=== PATIENT | female | born 1960 | race Caucasian/White ===

== ENCOUNTER 2020-12-06 03:49 | Emergency (ER) | payer MEDICAID, OTHER ==
[~2020-12-06] VITALS: Ht 167.6 cm; Wt 85.7 kg
[~2020-12-06 03:49] MED LIST: ALBU18HF2 INH; HYDR-3972 PO; IBUP-1985 PO; METF-438 PO; PANT-47 PO; SIMV-42 PO; [UNRECOGNIZED DRUG - CODE] VG
[2020-12-06] MEDS ORDERED: LORazepam 1 MG tablet PO ONE (05:25)
[2020-12-06] MEDS ORDERED: ondansetron 4mg rapidly disintigrating tab PO ONE (05:25)
[2020-12-06] MEDS ORDERED: CHLO25CA10 PO (05:28)
[2020-12-06 08:57] LABS: BASOPHILS # (AUTO) 0.1 X10'3 (0-0.2); EOSINOPHILS # (AUTO) 0.2 X10'3 (0-0.9); LYMPHOCYTES # (AUTO) 1.9 X10'3 (1.1-4.8); NEUTROPHILS # (AUTO) 2.3 X10'3 (1.8-7.7); RED CELL DISTRIBUTION WIDTH 13.7 % (11.5-14.5)
[2020-12-06 08:58] LABS: BASOPHILS % (AUTO) 2.9 % (0-1); EOSINOPHILS % (AUTO) 3.4 % (0-6); HEMATOCRIT 39.9 % (35.0-45.0); HEMOGLOBIN 13.5 g/dl (12.0-16.0); LYMPHOCYTES % (AUTO) 38.2 % (21-51); MEAN CORPUSCULAR HEMOGLOBIN 37.7 PG (27.0-31.0); MEAN CORPUSCULAR HGB CONC 33.9 g/dL (33.0-36.5); MEAN CORPUSCULAR VOLUME 111.1 FL (78-98); MEAN PLATELET VOLUME 7.1 FL (7.4-10.4); MONOCYTES # (AUTO) 0.5 X10'3 (0-0.9); MONOCYTES % (AUTO) 10.2 % (2-12); NEUTROPHILS % (AUTO) 45.3 % (42-75); PLATELET COUNT 97 X10'3 (140-440); RED BLOOD COUNT 3.59 X10'6 (4.20-5.60)
[2020-12-06 09:06] VITALS: BP 161/115
--- NOTE | 2020-12-06 09:14 | NUR ---
bp 161/115, informed dr. mauricio. no new orders, ok for discharge.
[2020-12-06 09:23] LABS: ALANINE AMINOTRANSFERASE 32 U/L (12-78); ALBUMIN 2.4 G/DL (3.4-5.0); ALBUMIN/GLOBULIN RATIO 0.7 (1.1-1.5); ALKALINE PHOSPHATASE 129 IU/L (46-116); ANION GAP 11 (8-16); ASPARTATE AMINO TRANSFERASE 105 U/L (10-37); BILIRUBIN,TOTAL 0.6 MG/DL (0.1-1.0); BLOOD UREA NITROGEN 6 MG/DL (7-18); BUN/CREATININE RATIO 10.2 (6.6-38.0); CALCIUM 7.1 MG/DL (8.5-10.1); CHLORIDE 109 MMOL/L (99-107); CREATININE 0.59 MG/DL (0.40-0.90); GLUCOSE 92 MG/DL (70-104); POTASSIUM 3.1 MMOL/L (3.5-5.1); SODIUM 149 MMOL/L (135-145); TOTAL CARBON DIOXIDE 28.8 MMOL/L (24-32); TOTAL PROTEIN 5.9 G/DL (6.4-8.2); eGFR > 90 ML/MIN
== END 2020-12-06 09:16 | disposition home or self-care (01) ==
LOC: ER 03:50
DX: F10.239 Alcohol dependence with withdrawal, unspecified (principal); E78.00 Pure hypercholesterolemia, unspecified; E11.9 Type 2 diabetes mellitus without complications; Z91.013 Allergy to seafood; Z88.8 Allergy status to other drugs, medicaments and biological substances; Z79.2 Long term (current) use of antibiotics; Z79.899 Other long term (current) drug therapy; Z87.440 Personal history of urinary (tract) infections; Z87.442 Personal history of urinary calculi; Y90.8 Blood alcohol level of 240 mg/100 ml or more
CPT/HCPCS: 80053; 82948; 85025; 99283

== ENCOUNTER 2021-11-27 08:26 | Inpatient (IN) | payer BC, MEDICAID, OTHER ==
[2021-11-27] VITALS (8 sets, daily range): BP systolic 84–97; BP diastolic 50–69
[~2021-11-27] VITALS: Ht 170.2 cm; Wt 99.5 kg
[~2021-11-27 08:26] MED LIST changes: +CHLO25CA10 PO
[2021-11-27 09:22] LABS: HEMATOCRIT 30.2 % (35.0-45.0); MEAN CORPUSCULAR HEMOGLOBIN 39.3 PG (27.0-31.0)
[2021-11-27 09:24] LABS: BASOPHILS # (AUTO) 0.1 X10'3 (0-0.2); BASOPHILS % (AUTO) 1.4 % (0-1); EOSINOPHILS # (AUTO) 0.1 X10'3 (0-0.9); EOSINOPHILS % (AUTO) 0.7 % (0-6); HEMOGLOBIN 10.3 g/dl (12.0-16.0); LYMPHOCYTES # (AUTO) 1.3 X10'3 (1.1-4.8); LYMPHOCYTES % (AUTO) 12.2 % (21-51); MEAN CORPUSCULAR HGB CONC 34.2 g/dL (33.0-36.5); MEAN CORPUSCULAR VOLUME 114.9 FL (78-98); MEAN PLATELET VOLUME 7.6 FL (7.4-10.4); MONOCYTES # (AUTO) 1.4 X10'3 (0-0.9); MONOCYTES % (AUTO) 13.5 % (2-12); NEUTROPHILS # (AUTO) 7.5 X10'3 (1.8-7.7); NEUTROPHILS % (AUTO) 72.2 % (42-75); PLATELET COUNT 90 X10'3 (140-440); RED BLOOD COUNT 2.63 X10'6 (4.20-5.60); RED CELL DISTRIBUTION WIDTH 20.1 % (11.5-14.5); WHITE BLOOD COUNT 10.5 X10'3 (4.5-11.0)
[2021-11-27 09:26] LABS: ALANINE AMINOTRANSFERASE 30 U/L (12-78); ALBUMIN 1.6 G/DL (3.4-5.0); ALKALINE PHOSPHATASE 201 IU/L (46-116); ANION GAP 9 (8-16); ASPARTATE AMINO TRANSFERASE 123 U/L (10-37); BLOOD UREA NITROGEN 30 MG/DL (7-18); BUN/CREATININE RATIO 25.4 (6.6-38.0); CHLORIDE 103 MMOL/L (99-107); CREATININE 1.18 MG/DL (0.40-0.90); GLUCOSE 134 MG/DL (70-104); LIPASE 407 U/L (73-393); SODIUM 138 MMOL/L (135-145); TOTAL CARBON DIOXIDE 25.7 MMOL/L (24-32); eGFR 47 ML/MIN
[2021-11-27 09:27] LABS: ALBUMIN/GLOBULIN RATIO 0.3 (1.1-1.5); TOTAL PROTEIN 6.4 G/DL (6.4-8.2)
[2021-11-27 09:28] LABS: POTASSIUM 2.9 MMOL/L (3.5-5.1)
[2021-11-27 09:36] LABS: PLATELET ESTIMATE DECREASED
[2021-11-27 09:37] LABS: ANISOCYTOSIS 3+; APTT 32 SECONDS (22-32); POLYCHROMASIA 1+; TARGET CELLS 2+; TEAR DROP CELLS 1+
[2021-11-27] MEDS ORDERED: LORazepam 2 mg/ml vial IV ONE (10:20)
[2021-11-27] MEDS ORDERED: potassium Cl 20 mEq SR tablet PO ONE (10:20)
[2021-11-27] MEDS ORDERED: normal saline 1000ML IV soln IVB ONE (10:20)
[2021-11-27] MEDS ORDERED: ondansetron/PF 4mg/2ml inj IV ONE (10:20)
[2021-11-27] MEDS ORDERED: potassium CL 10mEq/100ml bag 100 ML IV ONE (10:35)
[2021-11-27] MEDS ORDERED: pantoprazole IV 80 MG in normal saline 100ml IV soln 100 ML IV ONE (10:50)
[2021-11-27] MEDS ORDERED: pantoprazole 40MG/NS 100ML BAG 100 ML IV ONE (10:50)
[2021-11-27 11:18] LABS: CLARITY,URINE CLOUDY (Clear)
[2021-11-27 11:25] LABS: COLOR,URINE AMBER (Yellow); UA COLLECTION TYPE NON-SPECIFIED
[2021-11-27 11:26] LABS: BACTERIA,URINE 1+ /HPF (Neg); HYALINE CASTS 0-3 /LPF (NEGATIVE); MUCUS STRANDS FEW /LPF (Neg); RBC,URINE 0-2 /HPF (0-2); SQUAMOUS EPITHELIAL CELL,UR MODERATE /LPF (FEW); TRANSITIONAL EPI CELLS,URINE FEW /HPF; WBC,URINE 0-4 /HPF (0-4)
[2021-11-27 11:57] LABS: MAGNESIUM 1.3 MG/DL (1.5-2.4)
[2021-11-27] MEDS: magnesium 2GM in 50ml NS 50 ML IV SCH ×2 (12:54→13:37)
[2021-11-27] MEDS ORDERED: octreotide 100mcg/1 ml ampule IV ONE (13:10)
[2021-11-27] MEDS ORDERED: POTASSIUM BICARB 20meq eff tab 20 MEQ TABLET.EFF PO PRN ×2 (13:30)
[2021-11-27] MEDS ORDERED: diphenhydrAMINE 25mg capsule PO PRN (13:30)
[2021-11-27] MEDS ORDERED: dextrose 50%-water 50ml dispensing syringe IV PRN ×3 (13:30)
[2021-11-27] MEDS ORDERED: haloperidol 5mg tablet PO PRN (13:30)
[2021-11-27] MEDS ORDERED: magnesium 2GM in 50ml NS 50 ML IV PRN (13:30)
[2021-11-27] MEDS ORDERED: glucagon, human recombinant 1mg kit SUBCUT PRN (13:30)
[2021-11-27] MEDS ORDERED: HYDROcodone/acetaminophen 5mg/325mg tablet PO PRN (13:30)
[2021-11-27] MEDS ORDERED: MESSAGE TO PHARMACY PO ONE (13:30)
[2021-11-27] MEDS ORDERED: morphine 2 MG/ML inj. syringe IV PRN (13:30)
[2021-11-27] MEDS ORDERED: DEXTROSE 15 GM of carb/4 tabs (each vial/BOTTLE has 4 tablets) PO PRN ×2 (13:30)
[2021-11-27] MEDS ORDERED: magnesium hydroxide 30ml (MOM) UD suspension PO PRN (13:30)
[2021-11-27] MEDS ORDERED: haloperidol lactate 5mg/ml inj IM PRN (13:30)
[2021-11-27] MEDS ORDERED: ondansetron/PF 4mg/2ml inj IV PRN (13:30)
[2021-11-27] MEDS ORDERED: magnesium Cl slow-release 64mg tablet PO PRN (13:30)
[2021-11-27] MEDS ORDERED: acetaminophen 325mg tablet PO PRN ×2 (13:30)
[2021-11-27] MEDS ORDERED: magnesium 4gm in 100ml NS 100 ML IV PRN (13:30)
[2021-11-27] MEDS ORDERED: insulin Lispro (HumaLOG) vial - multi-dose SQ SCH (13:30)
[2021-11-27] MEDS ORDERED: mag hydrox/Alum hydrox/simeth 30ml oral suspension PO PRN (13:30)
[2021-11-27] MEDS: octreotide inj. 500 MCG in normal saline 100ml IV soln 97.5 ML IV SCH ×2 (13:38→15:55)
[2021-11-27] MEDS ORDERED: IBUP-1986 PO (13:47)
[2021-11-27] MEDS: dextrose 5%-normal saline 1,000 ML IV SCH ×2 (13:53→17:54)
[2021-11-27 14:06] LABS: HEMOGLOBIN A1C 5.7 % (4.5-6.2)
[2021-11-27] MEDS ORDERED: LIDOcaine Viscous 15ml cup ONE (16:06)
[2021-11-27] MEDS ORDERED: fentaNYL/PF 50MCG/1 ML 2ML syringe ONE (16:06)
[2021-11-27] MEDS ORDERED: MIDAZolam 1 MG/ML 5ML VIAL ONE (16:06)
[2021-11-27] MEDS: pantoprazole 40MG/NS 100ML BAG 100 ML IV SCH ×3 (17:45→22:54)
[2021-11-27] MEDS: K and/or MAG REPLACEMENT MC SCH (19:13)
[2021-11-27] MEDS: docusate sod 100mg capsule PO SCH (19:24)
[2021-11-27] MEDS: thiamine 100mg/ml 2ml inj. IV SCH (19:25)
[2021-11-27] MEDS: LORazepam 2 mg/ml vial IV PRN ×2 (19:46→22:46)
--- NOTE | 2021-11-27 20:15 | NUR ---
Patient sleeping after PRN IVP Ativan. Call light in reach, bed low.
[2021-11-27] MEDS: insulin glargine (Lantus) pen - multi-dose SQ SCH (21:00)
--- NOTE | 2021-11-27 23:15 | NUR ---
Patient sleeping after PRN IVP Ativan. Call light in reach, bed low.
[2021-11-28 02:00] VITALS: BP 98/70
[2021-11-28] MEDS: pantoprazole 40MG/NS 100ML BAG 100 ML IV SCH ×4 (03:43→23:46)
[2021-11-28] MEDS: LORazepam 2 mg/ml vial IV PRN ×3 (03:46→21:45)
--- NOTE | 2021-11-28 04:15 | NUR ---
Patient sleeping after PRN IVP Ativan. Call light in reach, bed low.
--- NOTE | 2021-11-28 05:36 | NUR ---
Alert and oriented x4, tolerating room air, patient drinking clear liquid water, chicken broth and some jello with out issues. RN instructed need to avoid any red colored fluids. Patient with 2 IV access due to high amount of IV fluid and IV push meds. both secured with coban. Patient up twice to bedside commode, needing assist of 2 staff members due unsteady on her feet. Side rails padded and suction equipment set up in room incase need for withdrawal symptoms. Patient assessed for withdrawal and given PRN Ativan as need based on assessment. Patient reports abdominal pain that she has on admit, no worse, did not ask for any pain medications. No s/s pain noted. patient currently resting in bed.
[2021-11-28 06:11] LABS: H PYLORI ANTIBODY NEGATIVE (Neg)
[2021-11-28 06:47] LABS: BASOPHILS # (AUTO) 0.1 X10'3 (0-0.2); BASOPHILS % (AUTO) 1.2 % (0-1); EOSINOPHILS # (AUTO) 0.2 X10'3 (0-0.9); EOSINOPHILS % (AUTO) 2.6 % (0-6); HEMATOCRIT 27.2 % (35.0-45.0); HEMOGLOBIN 9.2 g/dl (12.0-16.0); LYMPHOCYTES # (AUTO) 1.2 X10'3 (1.1-4.8); LYMPHOCYTES % (AUTO) 16.2 % (21-51); MEAN CORPUSCULAR HEMOGLOBIN 40.3 PG (27.0-31.0); MEAN CORPUSCULAR HGB CONC 33.9 g/dL (33.0-36.5); MEAN PLATELET VOLUME 7.7 FL (7.4-10.4); MONOCYTES # (AUTO) 0.7 X10'3 (0-0.9); MONOCYTES % (AUTO) 9.4 % (2-12); NEUTROPHILS % (AUTO) 70.6 % (42-75); PLATELET COUNT 66 X10'3 (140-440); RED BLOOD COUNT 2.29 X10'6 (4.20-5.60); RED CELL DISTRIBUTION WIDTH 21.1 % (11.5-14.5); WHITE BLOOD COUNT 7.1 X10'3 (4.5-11.0)
--- NOTE | 2021-11-28 06:54 | NUR ---
Patient in room PCU 3024. I have received report from Jinny GR and had the opportunity to ask questions and assume patient care.
[2021-11-28 07:00] VITALS: BP 86/53
[2021-11-28 07:04] LABS: ALANINE AMINOTRANSFERASE 26 U/L (12-78); ALBUMIN 1.4 G/DL (3.4-5.0); ALKALINE PHOSPHATASE 170 IU/L (46-116); ANION GAP 5 (8-16); ASPARTATE AMINO TRANSFERASE 98 U/L (10-37); BILIRUBIN,TOTAL 4.4 MG/DL (0.1-1.0); BLOOD UREA NITROGEN 30 MG/DL (7-18); CALCIUM 6.7 MG/DL (8.5-10.1); CHLORIDE 109 MMOL/L (99-107); GLUCOSE 231 MG/DL (70-104); HDL CHOLESTEROL 11 MG/DL (35-60); LDL CHOLESTEROL 51 MG/DL (50-100); MAGNESIUM 2.1 MG/DL (1.5-2.4); POTASSIUM 3.4 MMOL/L (3.5-5.1); SODIUM 137 MMOL/L (135-145); TOTAL CARBON DIOXIDE 22.6 MMOL/L (24-32); eGFR 46 ML/MIN
[2021-11-28 07:07] LABS: ALBUMIN/GLOBULIN RATIO 0.3 (1.1-1.5); CHOL/HDL RATIO 7.8 (0.00-4.99); CHOLESTEROL 86 MG/DL (0-200); PHOSPHORUS 1.6 MG/DL (2.3-4.5); TOTAL PROTEIN 5.6 G/DL (6.4-8.2); TRIGLYCERIDES 120 MG/DL (20-135)
[2021-11-28 07:34] LABS: ANISOCYTOSIS 3+; PLATELET ESTIMATE DECREASED; POIKILOCYTOSIS FEW; POLYCHROMASIA 1+
[2021-11-28] MEDS: dextrose 5%-normal saline 1,000 ML IV SCH ×3 (09:30→23:25)
[2021-11-28] MEDS: thiamine 100mg/ml 2ml inj. IV SCH ×3 (10:14→21:06)
[2021-11-28] MEDS: folic acid 1mg/0.2ml inj IV SCH (10:15)
[2021-11-28] MEDS: docusate sod 100mg capsule PO SCH ×2 (10:15→21:06)
[2021-11-28] MEDS: K and/or MAG REPLACEMENT MC SCH ×2 (10:29→20:00)
[2021-11-28 10:34] VITALS: BP 91/51
--- NOTE | 2021-11-28 11:26 | NUR ---
Patient daughter Stephie called and wanted an update on her mom. Update given.
[2021-11-28] MEDS: octreotide inj. 500 MCG in normal saline 100ml IV soln 97.5 ML IV SCH (12:49)
[2021-11-28 15:00] VITALS: BP 91/51
[2021-11-28] MEDS: HYDROcodone/acetaminophen 10/325mg tab PO PRN (17:44)
[2021-11-28 18:00] VITALS: BP 85/53
--- NOTE | 2021-11-28 18:30 | NUR ---
Patient in room PCU 3024. I have received report from Genesis GR and had the opportunity to ask questions and assume patient care.
--- NOTE | 2021-11-28 18:40 | NUR ---
Problems reprioritized. Patient report given, questions answered & plan of care reviewed with Chrystal GR.
[2021-11-28] MEDS: insulin glargine (Lantus) pen - multi-dose SQ SCH (21:45)
[2021-11-28 22:00] VITALS: BP 92/54
[2021-11-29] MEDS: pantoprazole 40MG/NS 100ML BAG 100 ML IV SCH ×4 (01:00→20:59)
[2021-11-29 02:00] VITALS: BP 110/80
[2021-11-29] MEDS: LORazepam 2 mg/ml vial IV PRN ×3 (04:31→22:21)
[2021-11-29] MEDS: octreotide inj. 500 MCG in normal saline 100ml IV soln 97.5 ML IV SCH (05:44)
--- NOTE | 2021-11-29 06:29 | NUR ---
Problems reprioritized. Patient report given, questions answered & plan of care reviewed with Genesis GR.
[2021-11-29 07:00] VITALS: BP 106/37
[2021-11-29] MEDS: K and/or MAG REPLACEMENT MC SCH ×2 (08:00→20:00)
[2021-11-29] MEDS: docusate sod 100mg capsule PO SCH ×2 (08:00→20:00)
[2021-11-29 08:13] LABS: BASOPHILS # (AUTO) 0.1 X10'3 (0-0.2); BASOPHILS % (AUTO) 1.3 % (0-1); EOSINOPHILS # (AUTO) 0.2 X10'3 (0-0.9); EOSINOPHILS % (AUTO) 2.2 % (0-6); HEMATOCRIT 34.3 % (35.0-45.0); HEMOGLOBIN 11.5 g/dl (12.0-16.0); LYMPHOCYTES # (AUTO) 1.9 X10'3 (1.1-4.8); LYMPHOCYTES % (AUTO) 17.5 % (21-51); MEAN CORPUSCULAR HEMOGLOBIN 40.1 PG (27.0-31.0); MEAN CORPUSCULAR HGB CONC 33.5 g/dL (33.0-36.5); MEAN CORPUSCULAR VOLUME 119.9 FL (78-98); MEAN PLATELET VOLUME 7.8 FL (7.4-10.4); MONOCYTES # (AUTO) 0.9 X10'3 (0-0.9); MONOCYTES % (AUTO) 8.1 % (2-12); NEUTROPHILS # (AUTO) 7.7 X10'3 (1.8-7.7); NEUTROPHILS % (AUTO) 70.9 % (42-75); PLATELET COUNT 87 X10'3 (140-440); RED BLOOD COUNT 2.86 X10'6 (4.20-5.60); RED CELL DISTRIBUTION WIDTH 22.6 % (11.5-14.5); WHITE BLOOD COUNT 10.8 X10'3 (4.5-11.0)
[2021-11-29 08:44] LABS: ALANINE AMINOTRANSFERASE 35 U/L (12-78); ALBUMIN 1.8 G/DL (3.4-5.0); ALKALINE PHOSPHATASE 195 IU/L (46-116); ANION GAP 9 (8-16); ASPARTATE AMINO TRANSFERASE 123 U/L (10-37); BILIRUBIN,TOTAL 5.5 MG/DL (0.1-1.0); BLOOD UREA NITROGEN 23 MG/DL (7-18); BUN/CREATININE RATIO 22.8 (6.6-38.0); CALCIUM 6.8 MG/DL (8.5-10.1); CHLORIDE 112 MMOL/L (99-107); CREATININE 1.01 MG/DL (0.40-0.90); GLUCOSE 160 MG/DL (70-104); MAGNESIUM 1.8 MG/DL (1.5-2.4); SODIUM 144 MMOL/L (135-145); TOTAL CARBON DIOXIDE 22.6 MMOL/L (24-32); eGFR 56 ML/MIN
[2021-11-29 08:47] LABS: ALBUMIN/GLOBULIN RATIO 0.4 (1.1-1.5); POTASSIUM 3.2 MMOL/L (3.5-5.1); TOTAL PROTEIN 6.7 G/DL (6.4-8.2)
[2021-11-29 08:49] LABS: PHOSPHORUS 0.9 MG/DL (2.3-4.5)
--- NOTE | 2021-11-29 09:22 | NUR ---
MD chapin for critical lab
[2021-11-29] MEDS ORDERED: potassium phosphate inj 30 MMOL in normal saline 500ml IV soln 500 ML IV ONE (10:25)
[2021-11-29 10:33] LABS: ANISOCYTOSIS 3+; PLATELET ESTIMATE DECREASED; STOMATOCYTES FEW; TARGET CELLS FEW; TEAR DROP CELLS 1+
[2021-11-29 10:34] LABS: POLYCHROMASIA FEW
[2021-11-29 11:00] VITALS: BP 111/67
--- NOTE | 2021-11-29 11:24 | NUR ---
Can give info to patients children: Daughters Marta Alfaro - [phone] Stephie [phone] and maurice Arreola [phone] Addendum: 11/29/21 at 1129 by eGnesis Wilson RN Also maurice Alfaro - [phone]
[2021-11-29] MEDS: dextrose 5%-1/2 normal saline 1,000 ML IV SCH (12:10)
[2021-11-29] MEDS: thiamine 100mg/ml 2ml inj. IV SCH ×3 (12:41→21:02)
--- NOTE | 2021-11-29 13:05 | NUR ---
Tried several times to call patients daughter back (she called and wanted an update) Phone number does not ring.
[2021-11-29] MEDS: folic acid 1mg/0.2ml inj IV SCH (13:26)
[2021-11-29] MEDS ORDERED: LORazepam 1 MG tablet PO PRN (13:30)
[2021-11-29 15:00] VITALS: BP 105/54
--- NOTE | 2021-11-29 16:00 | NUR ---
Problems reprioritized. Patient report given, questions answered & plan of care reviewed with Jinny GR.
[2021-11-29 18:00] VITALS: BP 115/55
[2021-11-29] MEDS: potassium CL 10mEq/100ml bag 100 ML IV PRN ×4 (18:21→22:48)
[2021-11-29 22:00] VITALS: BP 98/59
[2021-11-29] MEDS: insulin glargine (Lantus) pen - multi-dose SQ SCH (22:50)
[2021-11-30] MEDS: LORazepam 2 mg/ml vial IV PRN ×8 (00:56→23:50)
[2021-11-30] MEDS: dextrose 5%-1/2 normal saline 1,000 ML IV SCH ×2 (01:10→14:25)
[2021-11-30 02:00] VITALS: BP 97/58
--- NOTE | 2021-11-30 05:53 | NUR ---
patient sleepy, waking every hour or so with noted tremor, restless, anxious, reports some nausea earlier in the night and headache. Patient received multiple doses of PRN ativan. When patient agitated and needing ativan HR noted on tele in 120's and tachypneic in mid to high 20's. After ativan patient would settle for 30-60 min and HR would return to 100's and respirations in low 20's. Patient weak and has difficulty moving in bed, sleeps better on her side. During the night patient reported feeling SOB, SPO2 around 90, RN placed patient on O2 via NC between 3-4LPM, patient now has O2 sat around 94%. Patient incontinent and due to restlessness unable to having Starteed work appropriately, patient placed in a brief. Seizure pads on bed. Patient has one IV, two RNs tried several times without success to gain additional IV access. Right AC has very good blood return and functioning well during the night. IV fluids infusing. Patient currently resting comfortable on her right side, wearing O2.
[2021-11-30 07:00] VITALS: BP 97/70
[2021-11-30 07:55] LABS: BASOPHILS # (AUTO) 0.2 X10'3 (0-0.2); BASOPHILS % (AUTO) 1.4 % (0-1); EOSINOPHILS # (AUTO) 0.1 X10'3 (0-0.9); EOSINOPHILS % (AUTO) 0.8 % (0-6); HEMATOCRIT 34.9 % (35.0-45.0); LYMPHOCYTES # (AUTO) 2.3 X10'3 (1.1-4.8); LYMPHOCYTES % (AUTO) 17.8 % (21-51); MEAN CORPUSCULAR HEMOGLOBIN 39.8 PG (27.0-31.0); MEAN CORPUSCULAR HGB CONC 31.5 g/dL (33.0-36.5); MEAN CORPUSCULAR VOLUME 126.5 FL (78-98); MEAN PLATELET VOLUME 7.7 FL (7.4-10.4); MONOCYTES # (AUTO) 1.2 X10'3 (0-0.9); MONOCYTES % (AUTO) 9.7 % (2-12); NEUTROPHILS # (AUTO) 8.9 X10'3 (1.8-7.7); NEUTROPHILS % (AUTO) 70.3 % (42-75); PLATELET COUNT 90 X10'3 (140-440); RED BLOOD COUNT 2.76 X10'6 (4.20-5.60); RED CELL DISTRIBUTION WIDTH 23.8 % (11.5-14.5); WHITE BLOOD COUNT 12.7 X10'3 (4.5-11.0)
[2021-11-30] MEDS: docusate sod 100mg capsule PO SCH ×2 (08:00→20:39)
[2021-11-30] MEDS: K and/or MAG REPLACEMENT MC SCH ×2 (08:00→20:00)
[2021-11-30 08:20] LABS: ALANINE AMINOTRANSFERASE 36 U/L (12-78); ALBUMIN 1.4 G/DL (3.4-5.0); ALKALINE PHOSPHATASE 170 IU/L (46-116); ANION GAP 10 (8-16); ASPARTATE AMINO TRANSFERASE 119 U/L (10-37); BILIRUBIN,TOTAL 6.8 MG/DL (0.1-1.0); BLOOD UREA NITROGEN 15 MG/DL (7-18); BUN/CREATININE RATIO 15.8 (6.6-38.0); CALCIUM 6.5 MG/DL (8.5-10.1); CHLORIDE 117 MMOL/L (99-107); CREATININE 0.95 MG/DL (0.40-0.90); GLUCOSE 123 MG/DL (70-104); MAGNESIUM 1.5 MG/DL (1.5-2.4); SODIUM 144 MMOL/L (135-145); TOTAL CARBON DIOXIDE 16.8 MMOL/L (24-32); eGFR 60 ML/MIN
[2021-11-30 08:22] LABS: ALBUMIN/GLOBULIN RATIO 0.3 (1.1-1.5); PHOSPHORUS 1.3 MG/DL (2.3-4.5); POTASSIUM 4.3 MMOL/L (3.5-5.1)
[2021-11-30] MEDS: thiamine 100mg/ml 2ml inj. IV SCH ×3 (08:54→20:39)
[2021-11-30] MEDS: folic acid 1mg/0.2ml inj IV SCH (08:54)
[2021-11-30] MEDS: pantoprazole 40MG/NS 100ML BAG 100 ML IV SCH ×2 (10:02→20:40)
[2021-11-30 11:00] VITALS: BP 126/67
--- NOTE | 2021-11-30 14:53 | NUR ---
Message: [id number] Sophie Arreola: Patient is trying to get up and is very restless. Can I get a higher dose of Ativan or something else to help calm her down so she can rest? [facility] ext [phone] Custom Responses: promotional table spacer Transaction number: [id number]
[2021-11-30 15:00] VITALS: BP 98/64
--- NOTE | 2021-11-30 15:32 | NUR ---
PRESSURE ULCER EDUCATION: DEFINITION: A pressure ulcer is an area of skin that breaks down when you stay in one position too long. The constant pressure against the skin reduces the blood flow to that area and the affected tissue dies. CAUSES: "Being bedridden or in a wheelchair "Fragile skin "Having a chronic condition, such as diabetes or vascular disease "Inability to move certain parts of your body without assistance "Older age "Incontinence of urine or stool SYMPTOMS: "A reddened area that DOES NOT turn white when pressed on - this can be the beginning of a pressure ulcer "A blister, deep sore or a crater - these can be advanced pressure ulcers FIRST AID: "Relieve the pressure on this area "Keep the area clean and dry "Call your primary doctor if you see any of the above symptoms "DO NOT massage the area "DO NOT use a donut shaped or ring shaped pillow- these actually interfere with the blood flow and cause complications PREVENTION: "Check for pressure ulcers everyday "Change position at least every two hours to relieve pressure "Use items that help relieve pressure- pillows, sheepskin, foam padding, and powders. "Keep skin clean and dry "Eat healthy well balanced meals "Exercise daily IF YOU SEE ANY OF THESE SYMPTOMS WHILE IN THE HOSPITAL - TELL YOUR NURSE IMMEDIATELY. IF YOU SEE ANY OF THESE SYMPTOMS WHILE AT HOME OR HAVE ANY QUESTIONS OR CONCERNS ABOUT PRESSURE ULCERS - CALL YOUR PRIMARY DOCTOR IMMEDIATELY. Addendum: 11/30/21 at 1532 by Kadie Esposito LVN Amended: Links added.
--- NOTE | 2021-11-30 15:37 | NUR ---
Message: [id number] Sophie Arreola: Patient needs higher dose of Ativan please. [facility] ext [phone]
--- NOTE | 2021-11-30 16:06 | NUR ---
Message: [id number]: Maxwell. Sophie: Patient has temp of 101.4 Axillary. Still needing increase in Ativan. [facility] Transaction number: [id number]
[2021-11-30] MEDS ORDERED: acetaminophen 120MG suppository, rectal RC PRN (17:05)
[2021-11-30] MEDS ORDERED: folic acid 1mg/0.2ml inj IV SCH (17:05)
[2021-11-30] MEDS ORDERED: dextrose 50%-water 50ml dispensing syringe IV PRN (17:05)
[2021-11-30] MEDS ORDERED: haloperidol lactate 5mg/ml inj IM PRN (17:05)
[2021-11-30 18:00] VITALS: BP 109/82
[2021-11-30] MEDS ORDERED: acetaminophen 650mg rectal suppository RC PRN (18:30)
--- NOTE | 2021-11-30 19:04 | NUR ---
Patient in room PCU 3016. I have received report from MARGARETTE GR and had the opportunity to ask questions and assume patient care.
[2021-11-30] MEDS: nystatin 15 GM powder TP SCH (20:38)
[2021-11-30] MEDS: insulin glargine (Lantus) pen - multi-dose SQ SCH (21:00)
[2021-11-30 22:00] VITALS: BP 134/91
[2021-11-30] MEDS ORDERED: potassium phosphate inj 30 MMOL in normal saline 500ml IV soln 500 ML IV ONE (22:10)
[2021-11-30] MEDS: piperacillin/tazo 3.375gm/50ml 50 ML IV SCH (23:49)
[2021-11-30] MEDS: sodium bicarbonate (8.4%) inj. 100 MEQ in dextrose 5%-water 1,000 ML IV SCH (23:54)
[2021-12-01 02:00] VITALS: BP 133/84
[2021-12-01] MEDS: LORazepam 2 mg/ml vial IV PRN ×3 (02:41→22:17)
[2021-12-01 03:12] LABS: CLARITY,URINE SLIGHTLY CLOUDY (Clear); GLUCOSE, URINE 100 mg/dl (Neg); KETONES,URINE TRACE mg/dl (Neg); LEUKOCYTE ESTERASE ,URINE NEGATIVE (Neg); OCCULT BLOOD,URINE NEGATIVE (Neg); PROTEIN,URINE 30 mg/dl (Neg)
[2021-12-01 03:14] LABS: UA COLLECTION TYPE STRAIGHT CATH
[2021-12-01 03:15] LABS: COLOR,URINE DARK YELLOW (Yellow)
[2021-12-01 03:23] LABS: NITRITES, URINE NEGATIVE (Neg)
[2021-12-01 03:24] LABS: BACTERIA,URINE 1+ /HPF (Neg); MUCUS STRANDS FEW /LPF (Neg); RBC,URINE 0-2 /HPF (0-2); SQUAMOUS EPITHELIAL CELL,UR FEW /LPF (FEW); TRANSITIONAL EPI CELLS,URINE FEW /HPF; WBC,URINE 0-4 /HPF (0-4)
[2021-12-01 03:25] LABS: HYALINE CASTS 0-3 /LPF (NEGATIVE)
[2021-12-01] MEDS: dextrose 5%-1/2 normal saline 1,000 ML IV SCH ×2 (03:45→17:59)
[2021-12-01] MEDS: piperacillin/tazo 3.375gm/50ml 50 ML IV SCH ×3 (05:55→21:49)
[2021-12-01 06:19] LABS: BASOPHILS % (AUTO) 0.5 % (0-1); EOSINOPHILS % (AUTO) 0.3 % (0-6); HEMATOCRIT 28.3 % (35.0-45.0); HEMOGLOBIN 9.6 g/dl (12.0-16.0); LYMPHOCYTES # (AUTO) 1.1 X10'3 (1.1-4.8); LYMPHOCYTES % (AUTO) 10.8 % (21-51); MEAN CORPUSCULAR HEMOGLOBIN 40.6 PG (27.0-31.0); MEAN CORPUSCULAR HGB CONC 33.8 g/dL (33.0-36.5); MEAN CORPUSCULAR VOLUME 120.3 FL (78-98); MEAN PLATELET VOLUME 7.4 FL (7.4-10.4); MONOCYTES # (AUTO) 0.9 X10'3 (0-0.9); NEUTROPHILS # (AUTO) 7.8 X10'3 (1.8-7.7); NEUTROPHILS % (AUTO) 79.4 % (42-75); PLATELET COUNT 101 X10'3 (140-440); RED BLOOD COUNT 2.36 X10'6 (4.20-5.60); RED CELL DISTRIBUTION WIDTH 23.3 % (11.5-14.5); WHITE BLOOD COUNT 9.9 X10'3 (4.5-11.0)
--- NOTE | 2021-12-01 06:20 | NUR ---
Problems reprioritized. Patient report given, questions answered & plan of care reviewed with MARGARETTE GR.
[2021-12-01 06:32] LABS: ALANINE AMINOTRANSFERASE 33 U/L (12-78); ALBUMIN 1.4 G/DL (3.4-5.0); ALKALINE PHOSPHATASE 153 IU/L (46-116); ANION GAP 8 (8-16); ASPARTATE AMINO TRANSFERASE 103 U/L (10-37); BILIRUBIN,TOTAL 8.2 MG/DL (0.1-1.0); BLOOD UREA NITROGEN 15 MG/DL (7-18); BUN/CREATININE RATIO 12.2 (6.6-38.0); CALCIUM 6.2 MG/DL (8.5-10.1); CHLORIDE 116 MMOL/L (99-107); CREATININE 1.23 MG/DL (0.40-0.90); GLUCOSE 164 MG/DL (70-104); LIPASE 304 U/L (73-393); MAGNESIUM 1.2 MG/DL (1.5-2.4); SODIUM 145 MMOL/L (135-145); TOTAL CARBON DIOXIDE 20.9 MMOL/L (24-32); eGFR 45 ML/MIN
[2021-12-01 06:35] LABS: ALBUMIN/GLOBULIN RATIO 0.3 (1.1-1.5); PHOSPHORUS 2.9 MG/DL (2.3-4.5); POTASSIUM 4.3 MMOL/L (3.5-5.1); TOTAL PROTEIN 5.6 G/DL (6.4-8.2)
[2021-12-01] MEDS: K and/or MAG REPLACEMENT MC SCH ×2 (08:00→20:00)
[2021-12-01] MEDS: nystatin 15 GM powder TP SCH ×3 (08:00→21:50)
[2021-12-01] MEDS: docusate sod 100mg capsule PO SCH ×2 (08:00→20:00)
[2021-12-01 08:15] LABS: HIV ANTIBODY 1&2 RAPID NON-REACTIVE (Neg)
[2021-12-01] MEDS ORDERED: iohexol 300 MG/1 ML 50ml polymer ONE (08:15)
--- NOTE | 2021-12-01 08:21 | NUR ---
Message: [id number] Sophie Arreola: Patient has positive blood culture: Anaerobic bottle, left arm, + results @0300hrs Gram + cocci pairs and chains. [employer] [facility] Transaction number: [id number]
--- NOTE | 2021-12-01 08:25 | NUR ---
Called and spoke with daughter Stephie for information and approval for CT contrast screening form.
[2021-12-01] MEDS ORDERED: diatrozoate meglu/diatrozoate sod (37% iodine) 120ML oral solution PO ONE (10:10)
[2021-12-01] MEDS ORDERED: diatr meglu/diatrizoate 30ml oral sol.-(3 dose) bottle PO ONE (10:50)
[2021-12-01] MEDS: thiamine 100mg/ml 2ml inj. IV SCH ×3 (12:11→21:49)
[2021-12-01] MEDS: pantoprazole 40MG/NS 100ML BAG 100 ML IV SCH ×2 (12:12→21:49)
[2021-12-01] MEDS: sodium bicarbonate (8.4%) inj. 100 MEQ in dextrose 5%-water 1,000 ML IV SCH ×2 (12:45→17:33)
[2021-12-01] MEDS ORDERED: LORazepam 1 MG tablet PO PRN (13:30)
[2021-12-01] MEDS ORDERED: LORazepam 2 mg/ml vial IV PRN (13:30)
[2021-12-01] MEDS ORDERED: magnesium 2GM in 50ml NS 50 ML IV ONE (13:40)
[2021-12-01] MEDS ORDERED: magnesium 4gm in 100ml NS 100 ML IV PRN ×2 (13:45→14:05)
[2021-12-01] MEDS ORDERED: POTASSIUM BICARB 20meq eff tab 20 MEQ TABLET.EFF PO PRN ×2 (14:05)
[2021-12-01] MEDS ORDERED: magnesium Cl slow-release 64mg tablet PO PRN (14:05)
[2021-12-01] MEDS ORDERED: magnesium 2GM in 50ml NS 50 ML IV PRN (14:05)
[2021-12-01] MEDS ORDERED: potassium CL 10mEq/100ml bag 100 ML IV PRN (14:05)
[2021-12-01] MEDS: folic acid 1mg/0.2ml inj IV SCH (17:33)
[2021-12-01 18:00] VITALS: BP 95/58
--- NOTE | 2021-12-01 18:15 | NUR ---
Patient in room PCU 3016. I have received report from SIMÓN Hurtado and had the opportunity to ask questions and assume patient care.
[2021-12-01] MEDS ORDERED: LIDOcaine 2% 10ml TOPICAL JELLY (Urojet) TP ONE (19:35)
[2021-12-01] MEDS: insulin glargine (Lantus) pen - multi-dose SQ SCH (21:00)
[2021-12-01] MEDS: linezolid 600mg tablet PO SCH (21:50)
[2021-12-01 22:00] VITALS: BP 98/64
[2021-12-02] MEDS: LORazepam 2 mg/ml vial IV PRN ×5 (00:19→19:48)
[2021-12-02 02:00] VITALS: BP 80/45
[2021-12-02 07:00] VITALS: BP 101/67
[2021-12-02 07:14] LABS: BASOPHILS # (AUTO) 0.1 X10'3 (0-0.2); EOSINOPHILS # (AUTO) 0.3 X10'3 (0-0.9); EOSINOPHILS % (AUTO) 3.1 % (0-6); HEMATOCRIT 32.2 % (35.0-45.0); HEMOGLOBIN 10.6 g/dl (12.0-16.0); LYMPHOCYTES # (AUTO) 2.2 X10'3 (1.1-4.8); LYMPHOCYTES % (AUTO) 20.1 % (21-51); MEAN CORPUSCULAR HEMOGLOBIN 41.2 PG (27.0-31.0); MEAN CORPUSCULAR HGB CONC 32.8 g/dL (33.0-36.5); MEAN CORPUSCULAR VOLUME 125.8 FL (78-98); MEAN PLATELET VOLUME 7.4 FL (7.4-10.4); MONOCYTES # (AUTO) 1.6 X10'3 (0-0.9); MONOCYTES % (AUTO) 14.3 % (2-12); NEUTROPHILS # (AUTO) 6.7 X10'3 (1.8-7.7); NEUTROPHILS % (AUTO) 61.5 % (42-75); PLATELET COUNT 114 X10'3 (140-440); RED BLOOD COUNT 2.56 X10'6 (4.20-5.60); RED CELL DISTRIBUTION WIDTH 24.1 % (11.5-14.5); WHITE BLOOD COUNT 10.8 X10'3 (4.5-11.0)
[2021-12-02 07:26] LABS: ALANINE AMINOTRANSFERASE 32 U/L (12-78); ALBUMIN 1.3 G/DL (3.4-5.0); ALKALINE PHOSPHATASE 155 IU/L (46-116); ANION GAP 7 (8-16); ASPARTATE AMINO TRANSFERASE 100 U/L (10-37); BILIRUBIN,TOTAL 8.2 MG/DL (0.1-1.0); BLOOD UREA NITROGEN 18 MG/DL (7-18); BUN/CREATININE RATIO 16.7 (6.6-38.0); CALCIUM 6.5 MG/DL (8.5-10.1); CHLORIDE 115 MMOL/L (99-107); CREATININE 1.08 MG/DL (0.40-0.90); GLUCOSE 105 MG/DL (70-104); MAGNESIUM 2.5 MG/DL (1.5-2.4); SODIUM 144 MMOL/L (135-145); TOTAL CARBON DIOXIDE 21.9 MMOL/L (24-32); eGFR 52 ML/MIN
[2021-12-02 07:30] LABS: ALBUMIN/GLOBULIN RATIO 0.3 (1.1-1.5); POTASSIUM 3.6 MMOL/L (3.5-5.1); TOTAL PROTEIN 5.6 G/DL (6.4-8.2)
[2021-12-02] MEDS: pantoprazole 40MG/NS 100ML BAG 100 ML IV SCH ×2 (07:59→19:48)
[2021-12-02] MEDS ORDERED: folic acid 1mg tablet PO SCH (08:00)
[2021-12-02] MEDS: K and/or MAG REPLACEMENT MC SCH ×2 (08:00→20:00)
[2021-12-02] MEDS: piperacillin/tazo 3.375gm/50ml 50 ML IV SCH ×3 (08:01→21:26)
[2021-12-02] MEDS: nystatin 15 GM powder TP SCH ×3 (08:05→21:35)
[2021-12-02] MEDS: docusate sod 100mg capsule PO SCH ×2 (08:05→20:00)
[2021-12-02] MEDS: linezolid 600mg tablet PO SCH ×2 (08:06→20:00)
[2021-12-02] MEDS: thiamine 100mg/ml 2ml inj. IV SCH ×3 (08:07→21:26)
[2021-12-02 11:00] VITALS: BP 92/52
[2021-12-02] MEDS: folic acid 1mg/0.2ml inj IV SCH (12:23)
--- NOTE | 2021-12-02 12:23 | NUR ---
TF/Zyvox Consults: Pt admit DX heavy etoh abuse w/ GIB s/p EGD showing gastric and duodenal ulcers w/ varices, cirrhosis, ascites, encephalopathy, pancytopenia, and hypophosphatemia per EMR. Pt hx T2DM on metformin at home though A1C 5.7% this admit per EMR; unsure of accuracy. MCV 125.8 this AM receiving routine thiamine and folic acid supplementation per EMR. Pt on clear liquids since 11/27 though mostly no PO documentation of meals this admit advanced to full liquids per ELECTROTYPE SERVICER/MD recs this AM. Pt remains obtunded s/p NG placement w/ TF to start today per MD; recs below using IBW pending scaled wt this admit. Pt currently receiving Na-bicarb/D5W at 75ml/hr providing additional 306 kcals/day; may benefit from dex removal once EN advances. Noted Phos 2.0mg/dl this AM up from 0.9mg/dl 11/29 AM though low majority of admit per EMR; RD d/w RN regarding PRN phos replacement if MD agreeable as Phos likely to decline w/ initiation of EN. Given 5 days restrictive clear liquids diet and severe weakness pt meets severe malnutrition criteria; MD notified. Noted pt started on zyvox though not appropriate for low-tyramine ed at this time. Will monitor for EN tolerance, PO acceptance, and further nutrition intervention needs this admit. Rec: 1. Continuous TF per MD using Jevity 1.2 at 55ml/hr goal; to provide 1320ml volume/day, 1584 kcals, 1065ml water, and 73g protein. 2. additional water flush 100ml Q4H; monitor serum Na for adjustment needs 3. PALB Q /; daily wts 4. monitor for scaled wt and EN adjustment needs 5. continue full liquids diet per MD/ELECTROTYPE SERVICER recs; encourage PO 6. advance diet as medically indicated to regular per ELECTROTYPE SERVICER/MD recs; consider heart healthy restriction if PO becomes adequate 7. monitor for PO acceptance, appropriateness, for ONS, and EN adjustment needs based on PO trends 8. routine thiamine, folic acid supplementation for etoh per MD 9. routine bowel regimen per MD; ammonia 64umol/L 12/01 per EMR Addendum: 12/02/21 at [address] Amended: Links added.
[2021-12-02] MEDS ORDERED: insulin regular, human U-100 3ml vial - multi-dose SQ SCH (14:00)
[2021-12-02] MEDS: HYDROcodone/acetaminophen 10/325mg tab PO PRN ×3 (14:37→19:16)
[2021-12-02 15:00] VITALS: BP 93/52
[2021-12-02 16:17] LABS: HBSAG SCREEN Negative (Negative); HEP A AB, IGM Negative (Negative); HEPATITIS C ANTIBODY <0.1 s/co ratio (0.0-0.9)
[2021-12-02] MEDS ORDERED: insulin Lispro (HumaLOG) vial - multi-dose SQ SCH (16:35)
[2021-12-02 18:00] VITALS: BP 106/95
[2021-12-02] MEDS: sodium bicarbonate (8.4%) inj. 100 MEQ in dextrose 5%-water 1,000 ML IV SCH (18:19)
[2021-12-02] MEDS: morphine 2 MG/ML inj. syringe IV PRN (19:07)
[2021-12-02] MEDS: insulin glargine (Lantus) pen - multi-dose SQ SCH (21:34)
[2021-12-02 22:00] VITALS: BP 99/55
[2021-12-02] MEDS ORDERED: potassium phosphate inj 30 MMOL in normal saline 500ml IV soln 500 ML IV ONE (22:15)
[2021-12-03] MEDS: lactulose 20gm/30ml cup PO SCH ×4 (02:00→19:21)
[2021-12-03] MEDS: LORazepam 2 mg/ml vial IV PRN ×3 (02:30→12:15)
[2021-12-03] MEDS: piperacillin/tazo 3.375gm/50ml 50 ML IV SCH (05:24)
[2021-12-03 06:00] VITALS: BP 84/57
--- NOTE | 2021-12-03 06:42 | NUR ---
Patient in room PCU 3016. I have received report from SIMÓN Sebastian and had the opportunity to ask questions and assume patient care.
[2021-12-03 07:28] LABS: BASOPHILS # (AUTO) 0.1 X10'3 (0-0.2); BASOPHILS % (AUTO) 1.2 % (0-1); EOSINOPHILS # (AUTO) 0.3 X10'3 (0-0.9); EOSINOPHILS % (AUTO) 2.8 % (0-6); HEMATOCRIT 31.6 % (35.0-45.0); HEMOGLOBIN 10.5 g/dl (12.0-16.0); LYMPHOCYTES # (AUTO) 2.1 X10'3 (1.1-4.8); LYMPHOCYTES % (AUTO) 21.9 % (21-51); MEAN CORPUSCULAR HEMOGLOBIN 40.6 PG (27.0-31.0); MEAN CORPUSCULAR HGB CONC 33.2 g/dL (33.0-36.5); MEAN CORPUSCULAR VOLUME 122.1 FL (78-98); MEAN PLATELET VOLUME 7.6 FL (7.4-10.4); MONOCYTES # (AUTO) 1.5 X10'3 (0-0.9); MONOCYTES % (AUTO) 15.4 % (2-12); NEUTROPHILS # (AUTO) 5.6 X10'3 (1.8-7.7); NEUTROPHILS % (AUTO) 58.7 % (42-75); PLATELET COUNT 122 X10'3 (140-440); RED BLOOD COUNT 2.59 X10'6 (4.20-5.60); RED CELL DISTRIBUTION WIDTH 23.2 % (11.5-14.5); WHITE BLOOD COUNT 9.6 X10'3 (4.5-11.0)
[2021-12-03 07:36] LABS: ALANINE AMINOTRANSFERASE 36 U/L (12-78); ALBUMIN 1.3 G/DL (3.4-5.0); ALKALINE PHOSPHATASE 163 IU/L (46-116); ANION GAP 9 (8-16); ASPARTATE AMINO TRANSFERASE 119 U/L (10-37); BILIRUBIN,TOTAL 8.3 MG/DL (0.1-1.0); BLOOD UREA NITROGEN 18 MG/DL (7-18); BUN/CREATININE RATIO 14.6 (6.6-38.0); CALCIUM 6.8 MG/DL (8.5-10.1); CHLORIDE 113 MMOL/L (99-107); CREATININE 1.23 MG/DL (0.40-0.90); GLUCOSE 77 MG/DL (70-104); MAGNESIUM 2.3 MG/DL (1.5-2.4); PREALBUMIN 5.9 MG/DL (19-36); SODIUM 145 MMOL/L (135-145); TOTAL CARBON DIOXIDE 23.5 MMOL/L (24-32); eGFR 45 ML/MIN
[2021-12-03 07:44] LABS: ALBUMIN/GLOBULIN RATIO 0.3 (1.1-1.5); PHOSPHORUS 3.7 MG/DL (2.3-4.5); POTASSIUM 3.8 MMOL/L (3.5-5.1); TOTAL PROTEIN 5.7 G/DL (6.4-8.2)
[2021-12-03] MEDS: linezolid 600mg tablet PO SCH (08:00)
[2021-12-03] MEDS: docusate sod 100mg capsule PO SCH ×2 (08:00→19:21)
[2021-12-03] MEDS: K and/or MAG REPLACEMENT MC SCH ×2 (08:00→19:20)
[2021-12-03] MEDS: thiamine 100mg/ml 2ml inj. IV SCH ×3 (08:00→13:00)
[2021-12-03] MEDS: folic acid 1mg/0.2ml inj IV SCH (09:16)
[2021-12-03] MEDS: pantoprazole 40MG/NS 100ML BAG 100 ML IV SCH ×2 (09:21→19:20)
[2021-12-03] MEDS: nystatin 15 GM powder TP SCH ×3 (09:28→19:21)
[2021-12-03 11:00] VITALS: BP 84/52
[2021-12-03] MEDS: sodium bicarbonate (8.4%) inj. 100 MEQ in dextrose 5%-water 1,000 ML IV SCH (13:05)
[2021-12-03] MEDS: morphine 2 MG/ML inj. syringe IV PRN (13:09)
--- NOTE | 2021-12-03 13:48 | NUR ---
F/u 12/03: Pt pulled out NG w/ EN never started per EMR; both pt/daughter do not want NG per MD note. Pt advanced to full liquids 12/02 per EMR. Will monitor for PO acceptance and nutrition intervention needs w/ initial poor PO intake this admit meeting malnutrition criteria. Rec: 1. continue full liquids diet per MD/HIGH SCHOOL SCIENCE TEACHER recs; encourage PO 2. advance diet as medically indicated to regular per HIGH SCHOOL SCIENCE TEACHER/MD recs; consider heart healthy restriction if PO becomes adequate 3. monitor for PO acceptance, appropriateness, for ONS, and EN adjustment needs based on PO trends 4. routine thiamine, folic acid supplementation for etoh per MD 5. routine bowel regimen per MD; ammonia 64umol/L 12/01 per EMR Addendum: 12/03/21 at [address] Amended: Links added.
[2021-12-03 15:30] VITALS: BP 84/51
[2021-12-03] MEDS: penicillin G potassium inj 3,000,000 UNIT in normal saline 100ml IV soln 100 ML IV SCH ×2 (16:03→20:00)
--- NOTE | 2021-12-03 16:36 | NUR ---
PAGER ID: [phone] MESSAGE: Ange SPANGLER [phone] adela Arreola [id number] pt BP 84/51 HR 93. Please call with orders. Thank you Addendum: 12/03/21 at 1714 by Ange Gann RN correction: paged to [phone]. orders received for 500cc bolus x1 and change IV fluids to ns@75/hour
[2021-12-03] MEDS ORDERED: normal saline 500ml IV soln 500 ML IV ONE (17:10)
[2021-12-03] MEDS: normal saline 1000ml 1,000 ML IV SCH (17:15)
[2021-12-03 18:00] VITALS: BP 134/53
--- NOTE | 2021-12-03 18:47 | NUR ---
Problems reprioritized. Patient report given, questions answered & plan of care reviewed with SIMÓN Stevens.
[2021-12-03] MEDS: insulin glargine (Lantus) pen - multi-dose SQ SCH (21:00)
[2021-12-04 02:00] VITALS: BP 110/59
[2021-12-04] MEDS: lactulose 20gm/30ml cup PO SCH ×2 (02:00→08:46)
[2021-12-04] MEDS: penicillin G potassium inj 3,000,000 UNIT in normal saline 100ml IV soln 100 ML IV SCH ×4 (04:00→12:04)
[2021-12-04 06:00] VITALS: BP 100/64
[2021-12-04] MEDS: normal saline 1000ml 1,000 ML IV SCH (06:30)
[2021-12-04 06:35] LABS: BASOPHILS # (AUTO) 0.1 X10'3 (0-0.2); EOSINOPHILS # (AUTO) 0.1 X10'3 (0-0.9); EOSINOPHILS % (AUTO) 1.8 % (0-6); HEMATOCRIT 31.3 % (35.0-45.0); HEMOGLOBIN 10.4 g/dl (12.0-16.0); LYMPHOCYTES # (AUTO) 1.3 X10'3 (1.1-4.8); LYMPHOCYTES % (AUTO) 17.1 % (21-51); MEAN CORPUSCULAR HEMOGLOBIN 40.6 PG (27.0-31.0); MEAN CORPUSCULAR HGB CONC 33.3 g/dL (33.0-36.5); MEAN CORPUSCULAR VOLUME 121.9 FL (78-98); MEAN PLATELET VOLUME 7.5 FL (7.4-10.4); MONOCYTES # (AUTO) 0.9 X10'3 (0-0.9); MONOCYTES % (AUTO) 12.7 % (2-12); NEUTROPHILS % (AUTO) 67.4 % (42-75); PLATELET COUNT 126 X10'3 (140-440); RED BLOOD COUNT 2.57 X10'6 (4.20-5.60); RED CELL DISTRIBUTION WIDTH 22.1 % (11.5-14.5); WHITE BLOOD COUNT 7.4 X10'3 (4.5-11.0)
--- NOTE | 2021-12-04 06:47 | NUR ---
Patient in room PCU 3016. I have received report from Rodney GR and had the opportunity to ask questions and assume patient care.
[2021-12-04 07:07] LABS: ALANINE AMINOTRANSFERASE 34 U/L (12-78); ALBUMIN 1.2 G/DL (3.4-5.0); ANION GAP 10 (8-16); ASPARTATE AMINO TRANSFERASE 113 U/L (10-37); BILIRUBIN,TOTAL 7.9 MG/DL (0.1-1.0); BLOOD UREA NITROGEN 19 MG/DL (7-18); BUN/CREATININE RATIO 15.4 (6.6-38.0); CHLORIDE 114 MMOL/L (99-107); CREATININE 1.23 MG/DL (0.40-0.90); GLUCOSE 114 MG/DL (70-104); MAGNESIUM 2.1 MG/DL (1.5-2.4); SODIUM 147 MMOL/L (135-145); TOTAL CARBON DIOXIDE 22.8 MMOL/L (24-32); eGFR 45 ML/MIN
[2021-12-04 07:09] LABS: ALBUMIN/GLOBULIN RATIO 0.3 (1.1-1.5); PHOSPHORUS 4.4 MG/DL (2.3-4.5); POTASSIUM 4.2 MMOL/L (3.5-5.1); TOTAL PROTEIN 5.5 G/DL (6.4-8.2)
[2021-12-04 07:20] LABS: PLATELET ESTIMATE DECREASED
[2021-12-04 07:21] LABS: ANISOCYTOSIS 3+; POLYCHROMASIA 1+; TARGET CELLS 1+; TEAR DROP CELLS FEW
[2021-12-04 07:31] LABS: ALKALINE PHOSPHATASE 156 IU/L (46-116)
[2021-12-04] MEDS: K and/or MAG REPLACEMENT MC SCH (07:46)
[2021-12-04] MEDS ORDERED: thiamine 100mg tablet PO SCH (08:00)
[2021-12-04] MEDS: pantoprazole 40MG/NS 100ML BAG 100 ML IV SCH (08:46)
[2021-12-04] MEDS: nystatin 15 GM powder TP SCH ×3 (08:47→21:00)
[2021-12-04] MEDS: docusate sod 100mg capsule PO SCH (08:47)
[2021-12-04 11:00] VITALS: BP 103/46
[2021-12-04] MEDS: morphine 2 MG/ML inj. syringe IV PRN ×2 (12:06→16:06)
[2021-12-04 15:00] VITALS: BP 91/54
[2021-12-04 17:30] VITALS: BP 83/55
[2021-12-05 06:00] VITALS: BP 94/61
[2021-12-05] MEDS: morphine 10mg/0.5ml (conc. morphine) oral syringe PO PRN (07:02)
[2021-12-05] MEDS: nystatin 15 GM powder TP SCH ×3 (10:47→21:00)
[2021-12-05] MEDS: LORazepam 2 mg/ml vial IV PRN (10:47)
--- NOTE | 2021-12-05 13:07 | NUR ---
F/u 12/05: Pt now DNR w/ comfort care zyvox stopped per EMR. Pt on full liquids diet though dietary notified to honor pt/family requests given code status. [facility] 12/03. Will continue to follow. Rec: 1. honor pt/family food preferences 2. bowel care per rx Addendum: 12/05/21 at [address] Amended: Links added.
[2021-12-06 06:00] VITALS: BP 95/59
--- NOTE | 2021-12-06 07:00 | NUR ---
Patient in room PCU 3016. I have received report from Margot GR and had the opportunity to ask questions and assume patient care.
[2021-12-06] MEDS: nystatin 15 GM powder TP SCH ×3 (08:32→21:00)
[2021-12-06] MEDS: LORazepam 2 mg/ml vial IV PRN (15:17)
[2021-12-07] MEDS: LORazepam 2 mg/ml vial IV PRN ×3 (04:38→12:31)
[2021-12-07 06:00] VITALS: BP 81/46
[2021-12-07] MEDS: nystatin 15 GM powder TP SCH ×3 (08:00→21:55)
[2021-12-07] MEDS: morphine 10mg/0.5ml (conc. morphine) oral syringe PO PRN ×2 (09:22→14:27)
[2021-12-07 18:00] VITALS: BP 68/35
--- NOTE | 2021-12-07 18:29 | NUR ---
Gave report to Andrea GR.
[2021-12-07 22:00] VITALS: BP 106/60
[2021-12-08 06:00] VITALS: BP 75/51
[2021-12-08] MEDS: nystatin 15 GM powder TP SCH ×3 (08:00→21:00)
--- NOTE | 2021-12-08 10:42 | NUR ---
UNABLE TO COMPLETE NEURO ASSESSMENT DUE TO PT EXPECTED CONDITION
[2021-12-08 18:00] VITALS: BP 87/49
--- NOTE | 2021-12-08 18:24 | NUR ---
Problems reprioritized. Patient report given, questions answered & plan of care reviewed .
[2021-12-09 06:00] VITALS: BP 88/50
--- NOTE | 2021-12-09 07:00 | NUR ---
Patient in room PCU 3016. I have received report and had the opportunity to ask questions and assume patient care.
[2021-12-09] MEDS: morphine 10mg/0.5ml (conc. morphine) oral syringe PO PRN (07:34)
[2021-12-09] MEDS: LORazepam 2 mg/ml vial IV PRN ×2 (07:34→09:50)
[2021-12-09] MEDS: nystatin 15 GM powder TP SCH ×3 (07:37→20:08)
[2021-12-09 18:00] VITALS: BP 81/45
--- NOTE | 2021-12-09 18:25 | NUR ---
Problems reprioritized. Patient report given, questions answered & plan of care reviewed.
--- NOTE | 2021-12-09 18:38 | NUR ---
Patient in room PCU 3016. I have received report from SIMÓN Armando and had the opportunity to ask questions and assume patient care.
--- NOTE | 2021-12-10 06:00 | NUR ---
Patient in room PCU 3016. I have received report from AUREA GR and had the opportunity to ask questions and assume patient care.
--- NOTE | 2021-12-10 06:39 | NUR ---
Problems reprioritized. Patient report given, questions answered & plan of care reviewed with SIMÓN Clay.
[2021-12-10 07:00] VITALS: BP 68/36
[2021-12-10] MEDS: nystatin 15 GM powder TP SCH ×3 (08:00→21:00)
[2021-12-10] MEDS: LORazepam 2 mg/ml vial IV PRN ×2 (12:49→18:00)
[2021-12-10] MEDS: morphine 2 MG/ML inj. syringe IV PRN ×2 (15:38→21:19)
--- NOTE | 2021-12-10 18:36 | NUR ---
two hourly cares given family into see patient. Medicated for comfort see emar with good results. Slightly opens eyes when spoken to. Report given to Becca GR
[2021-12-11] MEDS: morphine 2 MG/ML inj. syringe IV PRN ×2 (00:23→09:05)
--- NOTE | 2021-12-11 06:32 | NUR ---
Problems reprioritized. Patient report given, questions answered & plan of care reviewed with Danna GR.
--- NOTE | 2021-12-11 06:40 | NUR ---
Patient in room PCU 3016. I have received report from Becca GR and had the opportunity to ask questions and assume patient care.
[2021-12-11 06:49] VITALS: BP 65/30
--- NOTE | 2021-12-11 08:53 | NUR ---
Reassessment: Noted pt with a low Rafael of 9, per WOC note pt with an intact DTI to sacrum and denuding to the perineum at the base of the bilat buttock. Pt continues eating poorly on full liquid diet however no nutrition intervention implemented as pt remains DNR with comfort care. [facility] 12/10. Will continue to follow per LOS. Recommendations: 1. Bowel care per comfort care measures Addendum: 12/11/21 at [address] Amended: Links added.
--- NOTE | 2021-12-11 12:41 | NUR ---
patient assessed B/P 65/30 patients breathing alisa ying. medicated x1 with morphine for comfort see EMAR. Family present. Patient 1000hrs strip run to confirm No heart beat or rhythm observed. Dr Mccollum made aware. Donor network called , spoke with Dominique. [facility] contacted, eze angel picked up patient 1230 to be taken to [facility] via [facility].
== END 2021-12-11 12:26 | DRG 377 ==
LOC: ER 08:26 → ED HOLD 13:31 → PCU 3S 15:44
PROVIDERS: ADMIT Family Medicine; ATTEND Family Medicine
PROC: 0DJ08ZZ Inspection of Upper Intestinal Tract, Via Natural or Artificial Opening Endoscopic (ICD-10-PCS; principal; 2021-11-27)
PROC: BW251ZZ Computerized Tomography (CT Scan) of Chest, Abdomen and Pelvis using Low Osmolar Contrast (ICD-10-PCS; 2021-12-01)
DX: K26.4 Chronic or unspecified duodenal ulcer with hemorrhage (principal); A40.3 Sepsis due to Streptococcus pneumoniae; E43 Unspecified severe protein-calorie malnutrition; R65.20 Severe sepsis without septic shock; K76.6 Portal hypertension; D61.818 Other pancytopenia; N17.9 Acute kidney failure, unspecified; R18.8 Other ascites; E87.2 Acidosis; E51.2 Wernicke's encephalopathy; K25.4 Chronic or unspecified gastric ulcer with hemorrhage; I85.10 Secondary esophageal varices without bleeding; K29.60 Other gastritis without bleeding; E11.9 Type 2 diabetes mellitus without complications; I10 Essential (primary) hypertension; J44.9 Chronic obstructive pulmonary disease, unspecified; K70.40 Alcoholic hepatic failure without coma; E78.00 Pure hypercholesterolemia, unspecified; E78.5 Hyperlipidemia, unspecified; F10.20 Alcohol dependence, uncomplicated; F17.210 Nicotine dependence, cigarettes, uncomplicated; I16.0 Hypertensive urgency; E66.9 Obesity, unspecified; K31.89 Other diseases of stomach and duodenum; K21.9 Gastro-esophageal reflux disease without esophagitis; E87.6 Hypokalemia; I95.9 Hypotension, unspecified; K44.9 Diaphragmatic hernia without obstruction or gangrene; E83.39 Other disorders of phosphorus metabolism; Z66 Do not resuscitate; R00.1 Bradycardia, unspecified; K74.60 Unspecified cirrhosis of liver; Z20.822 Contact with and (suspected) exposure to COVID-19; Z51.5 Encounter for palliative care; Z80.51 Family history of malignant neoplasm of kidney; Z87.442 Personal history of urinary calculi; Z91.19 Patient's noncompliance with other medical treatment and regimen; Z68.34 Body mass index [BMI] 34.0-34.9, adult; Z88.8 Allergy status to other drugs, medicaments and biological substances; Z91.013 Allergy to seafood; Z87.440 Personal history of urinary (tract) infections; Z98.51 Tubal ligation status
CPT/HCPCS: 36415; 43235; 70450; 70486; 71045; 71260; 74018; 74176; 74177; 80053; 80061; 81001; 82103; 82140; 82948; 83036; 83690; 83735; 84100; 84132; 84134; 84145; 84443; 85008; 85025; 85610; 85730; 86677; 86703; 86705; 86706; 86709; 86803; 86885; 86900; 86901; 87040; 87077; 87186; 87340; 87635; 92508; 92616; 93005; 93306; 96361; 96365; 96366; 96375; 97110; 97112; 97161; 97530; 99152; 99285; A4620; C9113; G0378; J1630; J1815; J2060; J2250; J2270; J2354; J2405; J2540; J2543; J3010; J3411; J3475; J3480; J3490; J7030; J7040; J7042; J7070; Q9963; Q9967